=== PATIENT | female | born 1950 | race Caucasian/White ===

== ENCOUNTER 2018-01-19 16:09 | Inpatient (IN) | payer OTHER ==
[2018-01-19] MEDS: SOD CHLORIDE 0.9% 1,000 ML IV (20:37)
[2018-01-19] MEDS: AZITHROMYCIN 500MG/NS (PMX) 250 ML IV (20:41)
[2018-01-19] MEDS: CEFTRIAXONE 1 GM/50 ML (PMX) 50 ML IVPB (20:41)
[2018-01-19] MEDS: METHYLPREDNISOLONE 125 MG INJ IV (20:41)
[2018-01-19 20:43] LABS: ADD MAN DIFF? NO
[2018-01-19 20:59] LABS: BASOPHIL # 0.1 10^3/ul (0.0-0.1); BASOPHILS % 0.6 % (0.0-2.0); EOSINOPHILS % 0.3 % (0.0-7.0); HEMATOCRIT 42.2 % (37.0-47.0); HEMOGLOBIN 14.2 g/dl (12.0-16.0); LYMPHOCYTES # 1.7 10^3/ul (0.8-2.9); LYMPHOCYTES % 18.8 % (15.0-51.0); MEAN CORPUSCULAR HEMOGLOBIN 29.4 pg (29.0-33.0); MEAN CORPUSCULAR HGB CONC 33.6 g/dl (32.0-37.0); MEAN CORPUSCULAR VOLUME 87.4 fl (82.0-101.0); MEAN PLATELET VOLUME 9.7 fl (7.4-10.4); MONOCYTE # 1.2 10^3/ul (0.3-0.9); MONOCYTES % 13.6 % (0.0-11.0); NEUTROPHILS % 66.3 % (39.0-77.0); PLATELET COUNT 251 10^3/UL (140-415); RED BLOOD COUNT 4.83 10^6/ul (4.20-5.40); RED CELL DISTRIBUTION WIDTH 13.2 % (11.5-14.5)
[2018-01-19 20:59] LABS: WHITE BLOOD COUNT 9.1 10^3/ul (4.8-10.8)
[2018-01-19] MEDS: ALBUTEROL 0.5% (NEB) 2.5 MG/0.5 ML AMP INH (21:03)
[2018-01-19 21:07] LABS: ALANINE AMINOTRANSFERASE 26 IU/L (13-69); ALBUMIN 4.4 g/dl (3.3-4.9); ALBUMIN/GLOBULIN RATIO 1.46; ALKALINE PHOSPHATASE 78 IU/L (42-121); ANION GAP 11 (8-16); ASPARTATE AMINO TRANSFERASE 27 IU/L (15-46); BILIRUBIN,INDIRECT 0.2 mg/dl (0-1.1); BILIRUBIN,TOTAL 0.2 mg/dl (0.2-1.3); BLOOD UREA NITROGEN 22 mg/dl (7-20); CALCIUM 8.9 mg/dl (8.4-10.2); CARBON DIOXIDE 33 mmol/L (21-31); CHLORIDE 94 mmol/L (97-110); CREATININE 1.25 mg/dl (0.44-1.00); GLUCOSE 110 mg/dl (70-220); POTASSIUM 3.1 mmol/L (3.5-5.1); SODIUM 135 mmol/L (135-144); TOTAL PROTEIN 7.4 g/dl (6.1-8.1)
[2018-01-19] MEDS: POTASSIUM CHLORIDE (SR) 20 MEQ TAB PO (22:41)
[2018-01-20] MEDS ORDERED: ACETAMINOPHEN 325 MG TAB PO ×2 (00:30→02:00)
[2018-01-20] MEDS ORDERED: ONDANSETRON 4 MG INJ IV (00:30)
[2018-01-20] MEDS ORDERED: ALBUTEROL HFA 8 GM INHALER INH (02:00)
[2018-01-20] MEDS ORDERED: MAGNESIUM HYDROXIDE 30ML CUP PO (02:00)
[2018-01-20] MEDS ORDERED: DOCUSATE SODIUM 100 MG CAP PO (02:00)
[2018-01-20] MEDS ORDERED: BISACODYL (EC) 5 MG TAB PO (02:00)
[2018-01-20] MEDS ORDERED: HYDROCODONE/APAP (5/325) TAB PO (02:00)
[2018-01-20] MEDS ORDERED: IPRATROPIUM (HFA) 12.9 GM INHALER INH ×2 (02:00)
[2018-01-20] MEDS ORDERED: ONDANSETRON 4 MG TAB PO (02:00)
[2018-01-20] MEDS ORDERED: NACL 0.9% 3 ML SYG IV (02:00)
[2018-01-20] MEDS: SOD CHLORIDE 0.9% 1,000 ML IV (02:22)
[2018-01-20] MEDS: POTASSIUM CHLORIDE (SR) 20 MEQ TAB PO (03:13)
[2018-01-20] MEDS: SALMETEROL/FLUTICASONE 250/50 INHA INH ×3 (04:41→20:50)
[2018-01-20 04:43] LABS: ANION GAP 15 (8-16); BLOOD UREA NITROGEN 18 mg/dl (7-20); CALCIUM 8.2 mg/dl (8.4-10.2); CARBON DIOXIDE 29 mmol/L (21-31); CHLORIDE 103 mmol/L (97-110); CREATININE 0.96 mg/dl (0.44-1.00); GLUCOSE 160 mg/dl (70-220); POTASSIUM 3.6 mmol/L (3.5-5.1); SODIUM 143 mmol/L (135-144)
[2018-01-20 04:56] LABS: FREE T4 (FREE THYROXINE) 1.04 ng/dl (0.78-2.44)
[2018-01-20 05:10] LABS: THYROID STIMULATING HORMONE 0.197 MIU/L (0.465-4.680)
[2018-01-20] MEDS: ALBUTEROL/IPRATROPIUM (NEB) 3 ML AMP HHN ×5 (07:00→20:29)
[2018-01-20] MEDS: AZITHROMYCIN 250 MG TAB PO (09:28)
[2018-01-20] MEDS: predniSONE 20 MG TAB PO (09:28)
[2018-01-20] MEDS: ENOXAPARIN 40 MG/0.4 ML SYG SC (09:29)
[2018-01-20] MEDS: TIOTROPIUM 18 MCG CAPSULE INHA DEV INH (10:49)
[2018-01-20] MEDS: CEFTRIAXONE 1 GM/50 ML (PMX) 50 ML IVPB (17:04)
[2018-01-21] MEDS: ALBUTEROL/IPRATROPIUM (NEB) 3 ML AMP HHN ×5 (01:00→15:33)
[2018-01-21] MEDS: predniSONE 20 MG TAB PO (08:33)
[2018-01-21] MEDS: TIOTROPIUM 18 MCG CAPSULE INHA DEV INH (08:33)
[2018-01-21] MEDS: AZITHROMYCIN 250 MG TAB PO (08:33)
[2018-01-21] MEDS: SALMETEROL/FLUTICASONE 250/50 INHA INH (08:33)
[2018-01-21] MEDS: ENOXAPARIN 40 MG/0.4 ML SYG SC (08:36)
[2018-01-21] MEDS: OXYMETAZOLINE 0.05% 15 ML NAS SPRAY NASAL (13:00)
[2018-01-21] MEDS: GUAIFENESIN 20 MG/ML 5ML CUP PO (15:33)
[2018-01-21] MEDS ORDERED: INFLUENZA VIRUS VACCINE 0.5 ML SYG IM* (20:00)
== END 2018-01-21 14:25 | disposition home or self-care (01) | DRG 192 ==
LOC: MS3 01-20 00:03 → E/R 16:09
DX: J44.1 Chronic obstructive pulmonary disease with (acute) exacerbation (principal)
CPT/HCPCS: 36415; 71045; 71046; 80048; 80053; 84439; 84443; 85025; 87040; 87400; 93005; 94640; 94644; 96374; 96375; 99285-25